=== PATIENT | male | born 1960 | race Caucasian/White ===

== ENCOUNTER 2016-07-19 14:07 | Emergency (ER) | payer OTHER ==
--- NOTE | 2016-07-19 15:39 | DIAGNOSTIC IMAGING REPORT ---
PROCEDURE: XR PELVIS 1 OR 2 VIEWS INDICATION: PAIN TECHNIQUE: AP view. COMPARISON: None. FINDINGS: Osseous structures are normal. IMPRESSION: 1. Negative pelvis.
--- NOTE | 2016-07-19 15:39 | DIAGNOSTIC IMAGING REPORT ---
PROCEDURE: XR PELVIS 1 OR 2 VIEWS INDICATION: PAIN TECHNIQUE: AP view. COMPARISON: None. FINDINGS: Osseous structures are normal. IMPRESSION: 1. Negative pelvis.
--- NOTE | 2016-07-19 15:42 | DIAGNOSTIC IMAGING REPORT ---
PROCEDURE: XR LUMBAR SPINE 2 OR 3 VIEWS INDICATION: Low back pain and lower extremity numbness. TECHNIQUE: Three views. COMPARISON: None. FINDINGS: There is moderate disc space narrowing at L4-5 and L5-S1 with moderate degenerate changes of the lower lumbar facet joints. The rest the os structures and disc spaces are normal. No evidence of an acute process or fracture. IMPRESSION: 1. Moderate degenerative changes of the lower lumbar spine. 2. No evidence of acute process.
--- NOTE | 2016-07-19 16:26 | ED NURSING NOTES ---
Clinical Report - Nurses [facility] [address] [place] [address] 07/19/2016 14:10 Patient: DANIELLE STEVENSON TRIAGE Triage time 14:16. Acuity: LEVEL 4. Chief Complaint: INJURY TO THE LEFT HIP. Alert. ( Pt states he just was standing "went to use the urinal," when he felt a pop. Since then the pain comes and goes and it feels like "lava running down my leg."). SEPSIS SCREEN: Sepsis Screen. Negative (no infection suspected/documented). CHELLE COMA SCORE: Chelle Coma Scale: 15- eyes open spontaneously (4); best verbal response- oriented x 4 (5); best motor response- obeys commands (6). --14:21 Amaya Francis R.N. 14:15 07/19/16. BP: 131/71. HR: 91. RR: 22. O2 saturation: 100%. Temp: 97.9 F. Pain level now: 6/10. Pain level upon arrival: 6/10. Pain level at maximum: 10/10. Describes the quality as burning. It has been waxing/waning. --14:21 Amaya Francis R.N. Weight: 105.2 kg stated. Height/Length: 75 inches Per Patient. BMI: 29. --14:19 Amaya Francis R.N. Medications Ibuprofen Oral 800 mg, as needed. --14:19 Amaya Francis R.N. Azithromycin Oral. --14:19 Amaya Francis R.N. Allergies Penicillin.(hives) --14:20 Amaya Francis R.N. History Arrived by private vehicle. Historian: patient. Accompanied by family. Primary physician (Daniel Brennan). This occurred today (10:30). 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 PAST MEDICAL HX: Immunizations: up-to-date. SOCIAL HX: Never smoker. Occasional alcohol use. No drug use. ABUSE ASSESSMENT: No report of abuse. SELF HARM ASSESSMENT: A self harm assessment was performed. The patient answered "no" to the question "Do you have thoughts of harming or killing yourself?" and "Have you recently had thoughts about harming or killing others?". --14:21 Amaya Francis R.N. PROBLEMS: Pneumonia. --14:20 Amaya Francis R.N. Interventions ID band on patient. Ambulatory. --14:21 Amaya Francis R.N. PHYSICAL ASSESSMENT To room via wheelchair. GENERAL / NEURO / PSYCH: Alert. Appears in no acute distress. EXTREMITIES: Pain with weight bearing. Left hip: tenderness. SKIN: Skin intact. Skin is warm and dry. --14:21 Amaya Francis R.N. NURSING PROGRESS NOTES Two patient identifiers checked. Call light placed in reach. Side rails up x 2. Bed placed in lowest position. Brakes of bed on. Patient ready for evaluation- chart flagged. --14:22 Amaya Francis R.N. Patient returned from radiology by stretcher with tech. --15:26 Christine Márquez R.N. 16:10 07/19/2016 Dilaudid (HYDROmorphone HCl PF) IM 2 mg given. Given in the left gluteus alessandro. Allergies verified, confirmed 5 rights and sedative warning given to the patient and patient's sas sql developer. --16:10 Renan Najera R.N. 16:33 07/19/2016 Dilaudid IM Response: no adverse reaction pain is worsening. Symptoms have improved the patient feels better. --16:33 Amaya Francis R.N. DISPOSITION / DISCHARGE 16:33 07/19/16. BP: 115/75. HR: 81. RR: 16. O2 saturation: 97%. Temp: 98.6 F. Pain level now 06/23. --16:33 Amaya Francis R.N. 16:33. Departure time: 1633. Condition at departure: stable. No learning barriers present. Discharge instructions provided and reviewed with the patient. Reviewed medication(s) side effects, precautions, dosing and course information. Prescription(s) given to the patient. Reviewed referral to family practice for followup. Patient verbalized understanding. Written instructions provided in [place]uran. The patient was discharged home and accompanied by parent. He left the Emergency Department ambulatory and via private vehicle. Parent driving. Medication list reviewed and validated. --16:35 Amaya Francis R.N. Locked/Released at 07/19/2016 16:37 by Amaya Francis R.N.
--- NOTE | 2016-07-19 16:26 | ED ORDER SUMMARY ---
..... Patient: DANIELLE STEVENSON OrderSheet [facility] VisitID: [id number] [address] [place] [address] 56y, M Registration Date/Time: 07/19/2016 ORDER SHEET Weight: 105.2 kg (stated) Allergies: Penicillin GENERAL ORDERS: Lumbar Spine 2 or 3V Urgent (15:06 07/19/2016 Dandre MAO) (Ack 15:08 Oleg) (15:27 Hien) Pelvis 1 or 2V Urgent (15:07 07/19/2016 Dandre MAO) (Ack 15:08 Oleg) (15:27 Hien) MEDICATION ORDERS: Dilaudid IM 2 mg (HIGH ALERT MEDICATION, NOW) (15:59 07/19/2016 Dandre MAO) (Ack 16:05 Lily R.NWilver) (16:10 Miguel García.NWilver) IV FLUIDS: ORDER SHEET NOTES: [Electronically signed by Amaya Francis R.N. (16:37 07/19/2016)] [Electronically signed by Luis Alberto Knapp MD (18:11 07/19/2016)] [Electronically locked/signed by Amaya Francis R.N. (16:37 07/19/2016)]
--- NOTE | 2016-07-19 16:26 | ED ORDER SUMMARY ---
..... Patient: DANIELLE STEVENSON OrderSheet [facility] VisitID: [id number] [address] [place] [address] 56y, M Registration Date/Time: 07/19/2016 ORDER SHEET Weight: 105.2 kg (stated) Allergies: Penicillin GENERAL ORDERS: Lumbar Spine 2 or 3V Urgent (15:06 07/19/2016 Dandre MAO) (Ack 15:08 Oleg) (15:27 Hien) Pelvis 1 or 2V Urgent (15:07 07/19/2016 Dandre MAO) (Ack 15:08 Oleg) (15:27 Hien) MEDICATION ORDERS: Dilaudid IM 2 mg (HIGH ALERT MEDICATION, NOW) (15:59 07/19/2016 Dandre MAO) (Ack 16:05 Lily R.NWilver) (16:10 Miguel García.NWilver) IV FLUIDS: ORDER SHEET NOTES: [Electronically signed by Amaya Francis R.N. (16:37 07/19/2016)] [Electronically signed by Luis Alberto Knapp MD (18:11 07/19/2016)] [Electronically locked/signed by Amaya Francis R.N. (16:37 07/19/2016)]
--- NOTE | 2016-07-19 16:26 | ED CLINICAL REPORT ---
Clinical Report - Physicians/Mid Levels [facility] [address] [place] [address] 07/19/2016 14:10 Patient: DANIELLE STEVENSON Time Seen: 14:27. Arrived- By private vehicle. Historian- patient. HISTORY OF PRESENT ILLNESS Chief Complaint: LOWER EXTREMITY PAIN. Severity is described as being severe. The quality is noted to be burning, aching and "pain". It is described as radiating to the left thigh, left calf and left foot. This started just prior to arrival and is still present. It was abrupt in onset and has been constant. The patient has not had redness. No swelling, bladder dysfunction or bowel dysfunction. Moderate sensory loss involving the left lower leg. Patient notes the possibility of an injury. Mechanism of injury- (he just was standing "went to use the urinal," when he felt a pop. Since then the pain comes and goes and it feels like "lava running down my leg."). Occurred at a jain. Similar symptoms previously: None. REVIEW OF SYSTEMS No chills, fever, sweats, calf pain or chest pain. No cough, difficulty breathing, pedal edema, palpitations or abdominal pain. No constipation, diarrhea, nausea, vomiting or urinary problems. All systems otherwise negative, except as recorded above. SOCIAL HISTORY Never smoker. Occasional alcohol use. No drug use. FAMILY HISTORY No significant family medical history. ADDITIONAL NOTES The nursing notes have been reviewed. PHYSICAL EXAM Vital Signs: 07/19/2016 14:15 BP: 131/71. HR: 91. RR: 22. O2 saturation: 100%. Temp: 97.9 F. Pain level now: 11/21. Have been reviewed. Respiratory rate 16 per my evaluation. Appearance: Alert. Appears to be in pain. Eyes: Pupils equal, round and reactive to light. ENT: Pharynx normal. Neck: Normal inspection. Neck supple. CVS: Normal heart rate and rhythm. Heart sounds normal. Respiratory: No respiratory distress. Breath sounds normal. Abdomen: Soft and nontender. No organomegaly. Back: Severely limited ROM in the back- in the lumbar spine: decreased flexion, extension, right lateral bending, left lateral bending and rotation to the right and left. Skin: Skin intact. Skin warm and dry. Normal skin color. Normal skin turgor. Extremities: No signs of infection involving the lower extremities. No lower extremity edema. Neuro: No motor deficit. No sensory deficit. LABS, X-RAYS, AND EKG LS-Spine X-rays: (IMPRESSION: 1. Moderate degenerative changes of the lower lumbar spine. 2. No evidence of acute process.). The X-rays were interpreted by the radiologist and contemporaneously by me. Pelvis X-ray: (IMPRESSION: 1. Negative pelvis.). The X-rays were interpreted by the radiologist and contemporaneously by me. PROGRESS AND PROCEDURES Course of Care: Patient is stable. Patient/family counseled. Old medical records ordered. Old records unavailable. Disposition: Discharged. Condition: stable. CLINICAL IMPRESSION Acute left sided lumbar radiculopathy. INSTRUCTIONS Apply ice for 20 minutes four times a day. Don't apply ice directly to skin and don't use while asleep. No driving or operating machinery while taking sedating medication. Sedative medication was given during your visit. No lifting greater than 5 lbs, no bending or stooping or no prolonged sitting. No strenuous activity. (avoid chiropractic manipulation until released by your primary care provider as discussed). Warnings: Further evaluation is necessary. GENERAL WARNINGS: Return or contact your physician immediately if your condition worsens or changes unexpectedly, if not improving as expected, or if other problems arise. Your Current Medications: CONTINUE TAKING THE FOLLOWING MEDICATIONS: Azithromycin Oral. Ibuprofen Oral : 800 mg, prn. Prescription Medications: Ultram 50 mg: take 1-2 orally every 6 hours as needed for pain. Dispense fifteen (15). No refills. Substitution is permissible. Follow-up: Follow up with your doctor ADONAY GAMA in five days. Call for the next available appointment. Understanding of the discharge instructions verbalized by patient. (Electronically signed by Luis Alberto Knapp MD 07/19/2016 18:11)
--- NOTE | 2016-07-19 16:26 | ED CLINICAL REPORT ---
Clinical Report - Physicians/Mid Levels [facility] [address] [place] [address] 07/19/2016 14:10 Patient: DANIELLE STEVENSON Time Seen: 14:27. Arrived- By private vehicle. Historian- patient. HISTORY OF PRESENT ILLNESS Chief Complaint: LOWER EXTREMITY PAIN. Severity is described as being severe. The quality is noted to be burning, aching and "pain". It is described as radiating to the left thigh, left calf and left foot. This started just prior to arrival and is still present. It was abrupt in onset and has been constant. The patient has not had redness. No swelling, bladder dysfunction or bowel dysfunction. Moderate sensory loss involving the left lower leg. Patient notes the possibility of an injury. Mechanism of injury- (he just was standing "went to use the urinal," when he felt a pop. Since then the pain comes and goes and it feels like "lava running down my leg."). Occurred at a hindu. Similar symptoms previously: None. REVIEW OF SYSTEMS No chills, fever, sweats, calf pain or chest pain. No cough, difficulty breathing, pedal edema, palpitations or abdominal pain. No constipation, diarrhea, nausea, vomiting or urinary problems. All systems otherwise negative, except as recorded above. SOCIAL HISTORY Never smoker. Occasional alcohol use. No drug use. FAMILY HISTORY No significant family medical history. ADDITIONAL NOTES The nursing notes have been reviewed. PHYSICAL EXAM Vital Signs: 07/19/2016 14:15 BP: 131/71. HR: 91. RR: 22. O2 saturation: 100%. Temp: 97.9 F. Pain level now: 11/21. Have been reviewed. Respiratory rate 16 per my evaluation. Appearance: Alert. Appears to be in pain. Eyes: Pupils equal, round and reactive to light. ENT: Pharynx normal. Neck: Normal inspection. Neck supple. CVS: Normal heart rate and rhythm. Heart sounds normal. Respiratory: No respiratory distress. Breath sounds normal. Abdomen: Soft and nontender. No organomegaly. Back: Severely limited ROM in the back- in the lumbar spine: decreased flexion, extension, right lateral bending, left lateral bending and rotation to the right and left. Skin: Skin intact. Skin warm and dry. Normal skin color. Normal skin turgor. Extremities: No signs of infection involving the lower extremities. No lower extremity edema. Neuro: No motor deficit. No sensory deficit. LABS, X-RAYS, AND EKG LS-Spine X-rays: (IMPRESSION: 1. Moderate degenerative changes of the lower lumbar spine. 2. No evidence of acute process.). The X-rays were interpreted by the radiologist and contemporaneously by me. Pelvis X-ray: (IMPRESSION: 1. Negative pelvis.). The X-rays were interpreted by the radiologist and contemporaneously by me. PROGRESS AND PROCEDURES Course of Care: Patient is stable. Patient/family counseled. Old medical records ordered. Old records unavailable. Disposition: Discharged. Condition: stable. CLINICAL IMPRESSION Acute left sided lumbar radiculopathy. INSTRUCTIONS Apply ice for 20 minutes four times a day. Don't apply ice directly to skin and don't use while asleep. No driving or operating machinery while taking sedating medication. Sedative medication was given during your visit. No lifting greater than 5 lbs, no bending or stooping or no prolonged sitting. No strenuous activity. (avoid chiropractic manipulation until released by your primary care provider as discussed). Warnings: Further evaluation is necessary. GENERAL WARNINGS: Return or contact your physician immediately if your condition worsens or changes unexpectedly, if not improving as expected, or if other problems arise. Your Current Medications: CONTINUE TAKING THE FOLLOWING MEDICATIONS: Azithromycin Oral. Ibuprofen Oral : 800 mg, prn. Prescription Medications: Ultram 50 mg: take 1-2 orally every 6 hours as needed for pain. Dispense fifteen (15). No refills. Substitution is permissible. Follow-up: Follow up with your doctor ADONAY GAMA in five days. Call for the next available appointment. Understanding of the discharge instructions verbalized by patient. (Electronically signed by Luis Alberto Knapp MD 07/19/2016 18:11)
--- NOTE | 2016-07-19 16:26 | ED NURSING NOTES ---
Clinical Report - Nurses [facility] [address] [place] [place] [address] 07/19/2016 14:10 Patient: DANIELLE STEVENSON TRIAGE Triage time 14:16. Acuity: LEVEL 4. Chief Complaint: INJURY TO THE LEFT HIP. Alert. ( Pt states he just was standing "went to use the urinal," when he felt a pop. Since then the pain comes and goes and it feels like "lava running down my leg."). SEPSIS SCREEN: Sepsis Screen. Negative (no infection suspected/documented). CHELLE COMA SCORE: Chelle Coma Scale: 15- eyes open spontaneously (4); best verbal response- oriented x 4 (5); best motor response- obeys commands (6). --14:21 Amaya Francis R.N. 14:15 07/19/16. BP: 131/71. HR: 91. RR: 22. O2 saturation: 100%. Temp: 97.9 F. Pain level now: 6/10. Pain level upon arrival: 6/10. Pain level at maximum: 10/10. Describes the quality as burning. It has been waxing/waning. --14:21 Amaya Francis R.N. Weight: 105.2 kg stated. Height/Length: 75 inches Per Patient. BMI: 29. --14:19 Amaya Francis R.N. Medications Ibuprofen Oral 800 mg, as needed. --14:19 Amaya Francis R.N. Azithromycin Oral. --14:19 Amaya Francis R.N. Allergies Penicillin.(hives) --14:20 Amaya Francis R.N. History Arrived by private vehicle. Historian: patient. Accompanied by family. Primary physician (Daniel Brennan). This occurred today (10:30). 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 PAST MEDICAL HX: Immunizations: up-to-date. SOCIAL HX: Never smoker. Occasional alcohol use. No drug use. ABUSE ASSESSMENT: No report of abuse. SELF HARM ASSESSMENT: A self harm assessment was performed. The patient answered "no" to the question "Do you have thoughts of harming or killing yourself?" and "Have you recently had thoughts about harming or killing others?". --14:21 Amaya Francis R.N. PROBLEMS: Pneumonia. --14:20 Amaya Francis R.N. Interventions ID band on patient. Ambulatory. --14:21 Amaya Francis R.N. PHYSICAL ASSESSMENT To room via wheelchair. GENERAL / NEURO / PSYCH: Alert. Appears in no acute distress. EXTREMITIES: Pain with weight bearing. Left hip: tenderness. SKIN: Skin intact. Skin is warm and dry. --14:21 Amaya Francis R.N. NURSING PROGRESS NOTES Two patient identifiers checked. Call light placed in reach. Side rails up x 2. Bed placed in lowest position. Brakes of bed on. Patient ready for evaluation- chart flagged. --14:22 Amaya Francis R.N. Patient returned from radiology by stretcher with tech. --15:26 Christine Márquez R.N. 16:10 07/19/2016 Dilaudid (HYDROmorphone HCl PF) IM 2 mg given. Given in the left gluteus alessandro. Allergies verified, confirmed 5 rights and sedative warning given to the patient and patient's test developer. --16:10 Renan Najera R.N. 16:33 07/19/2016 Dilaudid IM Response: no adverse reaction pain is worsening. Symptoms have improved the patient feels better. --16:33 Amaya Francis R.N. DISPOSITION / DISCHARGE 16:33 07/19/16. BP: 115/75. HR: 81. RR: 16. O2 saturation: 97%. Temp: 98.6 F. Pain level now 06/23. --16:33 Amaya Francis R.N. 16:33. Departure time: 1633. Condition at departure: stable. No learning barriers present. Discharge instructions provided and reviewed with the patient. Reviewed medication(s) side effects, precautions, dosing and course information. Prescription(s) given to the patient. Reviewed referral to family practice for followup. Patient verbalized understanding. Written instructions provided in Danish. The patient was discharged home and accompanied by parent. He left the Emergency Department ambulatory and via private vehicle. Parent driving. Medication list reviewed and validated. --16:35 Amaya Francis R.N. Locked/Released at 07/19/2016 16:37 by Amaya Francis R.N.
--- NOTE | 2016-07-19 18:12 | ED MAR SUMMARY ---
..... Medication Administration Record [facility] [address] [place] [address] Patient: DANIELLE STEVENSON Visit ID: [id number] 56y, M Weight: 105.2 kg Height/Length: 75 in BMI: 29 ALLERGIES: Penicillin Given 16:10 07/19/2016 Renan Najera R.N. Medication Administered: DILAUDID [IM] (HYDROMORPHONE HCL PF), Dose: 2 mg IM. Medication Ordered: Dilaudid IM 2 mg (HIGH ALERT MEDICATION, NOW).
--- NOTE | 2016-07-19 18:12 | ED MED RECONCILIATION SUMMARY ---
Patient: DANIELLE STEVENSON Medication Reconciliation Report [facility] VisitID: [id number] [address] [place] [address] 56y, M Registration Date/Time: 07/19/2016 Weight: 105.2 kg Height/Length: 75 in. BMI: 29.0 ALLERGIES: Penicillin The patient's Home Medications are listed below: CONTINUE TAKING THE FOLLOWING MEDICATIONS: Azithromycin Oral Ibuprofen Oral 800 mg The source(s) of the original Home Medication information: Not obtained. The following Medications were given to the patient in the Emergency Department: Dilaudid [IM] IM 2 mg, administered: 07/19/2016 4:10:00 PM The following Medications were prescribed to the patient: Ultram 50 mg: take 1-2 orally every 6 hours as needed for pain. Dispense fifteen (15). No refills. Substitution is permissible. -- Luis Alberto Knapp MD
--- NOTE | 2016-07-19 18:12 | ED MED RECONCILIATION SUMMARY ---
Patient: DANIELLE STEVENSON Medication Reconciliation Report [facility] VisitID: [id number] [address] [place] [address] 56y, M Registration Date/Time: 07/19/2016 Weight: 105.2 kg Height/Length: 75 in. BMI: 29.0 ALLERGIES: Penicillin The patient's Home Medications are listed below: CONTINUE TAKING THE FOLLOWING MEDICATIONS: Azithromycin Oral Ibuprofen Oral 800 mg The source(s) of the original Home Medication information: Not obtained. The following Medications were given to the patient in the Emergency Department: Dilaudid [IM] IM 2 mg, administered: 07/19/2016 4:10:00 PM The following Medications were prescribed to the patient: Ultram 50 mg: take 1-2 orally every 6 hours as needed for pain. Dispense fifteen (15). No refills. Substitution is permissible. -- Luis Alberto Knapp MD
--- NOTE | 2016-07-19 18:12 | ED DISCHARGE INSTRUCTIONS ---
Patient: DANIELLE STEVENSON General Instructions [facility] VisitID: [id number] [place] [address] 56y, M Registration Date/Time: 07/19/2016 Acute left sided lumbar radiculopathy. INSTRUCTIONS Apply ice for 20 minutes four times a day. Don't apply ice directly to skin and don't use while asleep. No driving or operating machinery while taking sedating medication. Sedative medication was given during your visit. No lifting greater than 5 lbs, no bending or stooping or no prolonged sitting. No strenuous activity. (avoid chiropractic manipulation until released by your primary care provider as discussed). Warnings: Further evaluation is necessary. GENERAL WARNINGS: Return or contact your physician immediately if your condition worsens or changes unexpectedly, if not improving as expected, or if other problems arise. Your Current Medications: CONTINUE TAKING THE FOLLOWING MEDICATIONS: Azithromycin Oral. Ibuprofen Oral : 800 mg, prn. Prescription Medications: Ultram 50 mg: take 1-2 orally every 6 hours as needed for pain. Dispense fifteen (15). No refills. Substitution is permissible. Follow-up: Follow up with your doctor ADONAY GAMA in five days. Call for the next available appointment. Understanding of the discharge instructions verbalized by patient. ADDITIONAL INFORMATION Sciatica Sciatica ("Lumbar Radiculopathy") causes a pain that spreads from the lower back down into the buttock, hip and leg. Sometimes leg pain can occur without any back pain. Sciatica is due to irritation or pressure on a spinal nerve as it comes out of the spinal canal. This is most often due to a bulge or rupture of a nearby spinal disk (the cartilage cushion between each spinal bone), which presses on a nearby nerve. Other causes include spinal stenosis (narrowing of the spinal canal) and spasm of the pyriform muscle (a muscle in the buttocks that the sciatic nerve passes through). Sciatica may begin after a sudden twisting/bending force (such as in a car accident), or sometimes after a simple awkward movement. In either case, muscle spasm is commonly present and contributes to the pain. The diagnosis of sciatica is made from the symptoms and physical exam. Unless you had a physical injury (such as a car accident or fall), X-rays are usually not ordered for the initial evaluation of sciatica because the nerves and disks cannot be seen on an x-ray. If signs of a compressed nerve are present (for example, loss of tendon reflex or strength in the leg), an MRI (magnetic resonance imaging) scan will need to be scheduled as an outpatient. Most sciatica (80-90%) gets better with medicine, exercise, physical therapy. If symptoms continue after at least three months of medical treatment, surgery may be considered. Home Care: You may need to stay in bed the first few days. But, as soon as possible, begin sitting or walking to avoid problems with prolonged bed rest. When in bed, try to find a position of comfort. A firm mattress is best. Try lying flat on your back with pillows under your knees. You can also try lying on your side with your knees bent up towards your chest and a pillow between your knees. Avoid prolonged sitting. This puts more stress on the lower back than standing or walking. Some persons find relief with heat (hot shower, hot bath or heating pad) and massage, while others prefer cold packs (crushed or cubed ice in a plastic bag, wrapped in a towel). Try both and use the method that feels best for 20 minutes several times a day. You may use acetaminophen (Tylenol) or ibuprofen (Motrin, Advil) to control pain, unless another pain medicine was prescribed. [ NOTE: If you have chronic liver or kidney disease or ever had a stomach ulcer or GI bleeding, talk with your doctor before using these medicines.] Be aware of safe lifting methods and do not lift anything over 15 pounds until all the pain is gone. Follow Up with your doctor or this facility if your symptoms do not start to improve after one week. Physical therapy or further testing may be needed. [NOTE: If X-rays were taken, they will be reviewed by a radiologist. You will be notified of any new findings that may affect your care.] Get Prompt Medical Attention if any of the following occur: Pain becomes worse, not controlled by the prescribed medicine Weakness or numbness in one or both legs Numbness in the groin, genital area Loss of bowel or bladder control Tramadol Hydrochloride Oral tablet What is this medicine? TRAMADOL (TRA ma dole) is a pain reliever. It is used to treat moderate to severe pain in adults. How should I use this medicine? Take this medicine by mouth with a full glass of water. Follow the directions on the prescription label. If the medicine upsets your stomach, take it with food or milk. Do not take more medicine than you are told to take. Talk to your dark room attendant regarding the use of this medicine in children. Special care may be needed. What side effects may I notice from receiving this medicine? Side effects that you should report to your doctor or health rn patient care as soon as possible: allergic reactions like skin rash, itching or hives, swelling of the face, lips, or tongue breathing difficulties, wheezing confusion itching light headedness or fainting spells redness, blistering, peeling or loosening of the skin, including inside the mouth seizures Side effects that usually do not require medical attention (report to your doctor or health rn patient care if they continue or are bothersome): constipation dizziness drowsiness headache nausea, vomiting What may interact with this medicine? Do not take this medicine with any of the following medications: MAOIs like Carbex, Eldepryl, Marplan, Nardil, and Parnate This medicine may also interact with the following medications: alcohol or medicines that contain alcohol antihistamines benzodiazepines bupropion carbamazepine or oxcarbazepine clozapine cyclobenzaprine digoxin furazolidone linezolid medicines for depression, anxiety, or psychotic disturbances medicines for migraine headache like almotriptan, eletriptan, frovatriptan, naratriptan, rizatriptan, sumatriptan, zolmitriptan medicines for pain like pentazocine, buprenorphine, butorphanol, meperidine, nalbuphine, and propoxyphene medicines for sleep muscle relaxants naltrexone phenobarbital phenothiazines like perphenazine, thioridazine, chlorpromazine, mesoridazine, fluphenazine, prochlorperazine, promazine, and trifluoperazine procarbazine warfarin What if I miss a dose? If you miss a dose, take it as soon as you can. If it is almost time for your next dose, take only that dose. Do not take double or extra doses. Where should I keep my medicine? Keep out of the reach of children. Store at room temperature between 15 and 30 degrees C (59 and 86 degrees F). Keep container tightly closed. Throw away any unused medicine after the expiration date. What should I tell my health care provider before I take this medicine? They need to know if you have any of these conditions: brain tumor depression drug abuse or addiction head injury if you frequently drink alcohol containing drinks kidney disease or trouble passing urine liver disease lung disease, asthma, or breathing problems seizures or epilepsy suicidal thoughts, plans, or attempt; a previous suicide attempt by you or a family member an unusual or allergic reaction to tramadol, codeine, other medicines, foods, dyes, or preservatives or trying to get breast-feeding What should I watch for while using this medicine? Tell your doctor or health rn patient care if your pain does not go away, if it gets worse, or if you have new or a different type of pain. You may develop tolerance to the medicine. Tolerance means that you will need a higher dose of the medicine for pain relief. Tolerance is normal and is expected if you take this medicine for a long time. Do not suddenly stop taking your medicine because you may develop a severe reaction. Your body becomes used to the medicine. This does NOT mean you are addicted. Addiction is a behavior related to getting and using a drug for a non-medical reason. If you have pain, you have a medical reason to take pain medicine. Your doctor will tell you how much medicine to take. If your doctor wants you to stop the medicine, the dose will be slowly lowered over time to avoid any side effects. You may get drowsy or dizzy. Do not drive, use machinery, or do anything that needs mental alertness until you know how this medicine affects you. Do not stand or sit up quickly, especially if you are an older patient. This reduces the risk of dizzy or fainting spells. Alcohol can increase or decrease the effects of this medicine. Avoid alcoholic drinks. You may have constipation. Try to have a bowel movement at least every 2 to 3 days. If you do not have a bowel movement for 3 days, call your doctor or health rn patient care. Your mouth may get dry. Chewing sugarless gum or sucking hard candy, and drinking plenty of water may help. Contact your doctor if the problem does not go away or is severe. You have been given the following additional information: Back Pain W/ Sciatica Tramadol Hydrochloride Oral tablet No driving or operating machinery while taking sedating medication. Sedative medication was given during your visit. No lifting greater than 5 lbs, no bending or stooping or no prolonged sitting. No strenuous activity. (Electronically signed by Luis Alberto Knapp MD 07/19/2016 18:11)
--- NOTE | 2016-07-19 18:12 | ED MAR SUMMARY ---
..... Medication Administration Record [facility] [address] [place] [address] Patient: DANIELLE STEVENSON Visit ID: [id number] 56y, M Weight: 105.2 kg Height/Length: 75 in BMI: 29 ALLERGIES: Penicillin Given 16:10 07/19/2016 Renan Najera R.N. Medication Administered: DILAUDID [IM] (HYDROMORPHONE HCL PF), Dose: 2 mg IM. Medication Ordered: Dilaudid IM 2 mg (HIGH ALERT MEDICATION, NOW).
== END 2016-07-19 16:34 | disposition home or self-care (01) ==
LOC: ED SRH 14:07
DX: M54.16 Radiculopathy, lumbar region (principal); Z88.0 Allergy status to penicillin; Z79.2 Long term (current) use of antibiotics